=== PATIENT | male | born 2000 | race Caucasian/White ===

== ENCOUNTER 2024-11-18 22:26 | Emergency (ER) | payer SELFPAY ==
[~2024-11-18] VITALS: Ht 188 cm; Wt 79.0 kg
[2024-11-18 22:31] VITALS: BP 135/51; PULSE 97; RESP 18; TEMP 36.8; O2SAT 95
[2024-11-19] MEDS ORDERED: DOXY-461 MT (00:53)
[2024-11-19] MEDS ORDERED: TC1C15 TP (00:53)
[2024-11-19] MEDS: CEFTRIAXONE SODIUM 500MG VIAL IM ONE (01:00)
== END 2024-11-19 01:03 | disposition home or self-care (01) ==
LOC: ER 22:26
DX: L30.9 Dermatitis, unspecified (principal); F41.9 Anxiety disorder, unspecified; J45.909 Unspecified asthma, uncomplicated; F31.9 Bipolar disorder, unspecified; F20.9 Schizophrenia, unspecified
CPT/HCPCS: 99283; 96372; J0696; Z7610 ×2